=== PATIENT | male | born 1960 | race Two or more races ===

== ENCOUNTER 2016-11-12 17:10 | Emergency (ER) | payer OTHER ==
[~2016-11-12] VITALS: Ht 170.2 cm; Wt 86.2 kg
[~2016-11-12 17:10] MED LIST: HYDR-1421
[2016-11-12 17:24] VITALS: BP 158/101
[2016-11-12] MEDS ORDERED: ONDANSETRON HCL 4 MG/2 ML VIAL IM ONE (20:15)
[2016-11-12] MEDS ORDERED: HYDROmorphone HCL 2 MG/ML VL IM ONE (20:15)
== END 2016-11-12 21:18 | disposition home or self-care (01) ==
LOC: ER 17:12
DX: S80.01XA Contusion of right knee, initial encounter (principal); W18.39XA Other fall on same level, initial encounter; Y93.89 Activity, other specified; Y92.89 Other specified places as the place of occurrence of the external cause; Y99.8 Other external cause status; Z79.899 Other long term (current) drug therapy; Z96.651 Presence of right artificial knee joint; Z96.698 Presence of other orthopedic joint implants
CPT/HCPCS: 73562; 93971; 96372; 99284; J1170; J2405

== ENCOUNTER 2016-11-15 13:41 | Emergency (ER) | payer OTHER ==
[~2016-11-15] VITALS: Ht 170.2 cm; Wt 86.2 kg
[2016-11-15] MEDS ORDERED: cefTRIAXone 1GM/50ML D5W 50 ML IV ONE (14:45)
[2016-11-15] MEDS ORDERED: CLINDAMYCIN 900MG IV 50 ML IV ONE (14:45)
[2016-11-15 15:29] LABS: Basophils # (auto) 0 uL; Basophils % (auto) 0.2 % (0.0-2.0); Eosinophils # (auto) 0 uL; Eosinophils % (auto) 0.2 % (0.0-7.0); Hematocrit 43.9 % (41.0-53.0); Hemoglobin 15.1 g/dL (13.5-17.5); Lymphocytes # (auto) 1.3 uL; Lymphocytes % (auto) 9.1 % (10.0-50.0); Mean Corpuscular Hgb Conc. 34.4 g/dL (32.0-36.0); Mean Platelet Volume 7.9 fL (6.9-10.8); Monocytes # (auto) 1.7 uL; Monocytes % (auto) 12.2 % (0.0-12.0); Neutrophils # (auto) 11.1 uL; Neutrophils % (auto) 78.3 % (37.0-80.0); Platelet Count (auto) 379 10^3/uL (140-450); Red Cell Distribution Width 12.7 % (11.8-14.3); White Blood Cell 14.1 10^3/uL (4.4-10.8)
[2016-11-15 15:42] LABS: Albumin 3.3 g/dL (3.4-5.0); BUN/Creatinine Ratio 17.4; Bilirubin, Total 1.3 mg/dL (0.2-1.0); Calcium 8.5 mg/dL (8.5-10.1); Potassium 3.8 mmol/L (3.5-5.1); Total Protein 7.8 g/dL (6.4-8.2)
[2016-11-15 15:48] LABS: REFLEX LACTIC ACID YES OR NO YES
[2016-11-15 16:11] LABS: Urine Bilirubin Negative (Negative); Urine Blood TRACE /uL (Negative); Urine Color Yellow (Yellow); Urine Glucose TRACE mg/dL (Normal); Urine Ketone Negative (Negative); Urine Mucus FEW (None Seen); Urine Nitrite Negative (Negative); Urine RBC 1 /hpf (0 - 3); Urine Squamous Epithelial Cell FEW /hpf (<5); Urine Urobilinogen Normal (Negative); Urine pH 5.5 (5.0-8.0)
[2016-11-15] MEDS ORDERED: SODIUM CHLORIDE 0.9% 1,000 ML IV ONE ×2 (16:33)
[2016-11-15] MEDS ORDERED: MORPHINE SULF INJ 2 MG/ML SYRINGE 1ML IV ONE ×2 (16:45→19:00)
[2016-11-15] MEDS ORDERED: ONDANSETRON HCL 4 MG/2 ML VIAL IV ONE (16:45)
[2016-11-15] MEDS ORDERED: THIAMINE HCL 100 MG/ML 2ML VIAL IV ONE (19:00)
[2016-11-15] MEDS ORDERED: VANCOMYCIN 1GM/250ML D5W 250 ML IV ONE (19:00)
[2016-11-15 21:10] VITALS: BP 145/93
[2016-11-16] MEDS ORDERED: THIAMINE HCL 100 MG/ML 2ML VIAL IV SCH (10:00)
== END 2016-11-15 21:59 | disposition short-term general hospital (02) ==
LOC: ER 13:44
DX: A41.9 Sepsis, unspecified organism (principal); M79.604 Pain in right leg
CPT/HCPCS: 36415; 71010; 73700; 80053; 81001; 82962; 83605; 85025; 87040; 87077; 96365; 96366; 96367; 96375; 96376; 99285; J0696; J2270; J2405; J3370; J3411; J3490; J7030